=== PATIENT | female | born 1980 | race Caucasian/White ===

== ENCOUNTER 2018-06-16 09:51 | Emergency (ER) | payer MEDICAID ==
[2018-06-16] MEDS: KETOROLAC 60 MG INJ IM (10:44)
[2018-06-16] MEDS: traMADol 50 MG TAB PO (10:44)
[2018-06-16] MEDS: DEXAMETHASONE 10 MG/ML 1 ML INJ IM (10:44)
== END 2018-06-16 11:56 | disposition home or self-care (01) ==
LOC: FTE 09:51
DX: K08.89 Other specified disorders of teeth and supporting structures (principal); R22.0 Localized swelling, mass and lump, head
CPT/HCPCS: 81025; 96372; 99284-25